=== PATIENT | male | born 1980 | race Caucasian/White ===

== ENCOUNTER 2017-03-23 15:09 | Emergency (ER) | payer MEDICARE, MEDICAID ==
[~2017-03-23] VITALS: Ht 152.4 cm; Wt 113.4 kg
--- NOTE | 2017-03-23 15:40 | ED Abdominal Pain ---
General Stated Complaint: ABD PAIN Source of Information: Caregiver (FROM [employer] [facility]), Other (PARENTS / MOM IS VERY LIMITED HISTORIAN) Exam Limitations: Other (PT WITH DOWN'S AND SEVERE MR AND MOSTLY UNINTELLIGIBLE SPEECH) History of Present Illness Time Seen By Provider: 15:18 Initial Comments PT ARRIVES VIA EMS FROM [facility] STAFF THINK PT IS HAVING ABDOMINAL PAIN, BUT CAN'T BE FOR CERTAIN PT HAS BEEN IN BED ALL DAY PT HAS NOT VOIDED SINCE YESTERDAY HAD SMALL, HARD/EDUARDO FOR BM YESTERDAY AROUND 1500 PT IS ABLE TO VERBALIZE HE HAS TO GO TO BATHROOM BUT CANNOT NO VOMITING, BUT ONLY INTAKE TODAY HAS BEEN 1 NUTRI-GRAIN BAR NO KNOWN FEVER NO HISTORY OF SIMILAR PCP: DR. HARRIS Allergies and Home Medications Allergies Coded Allergies: No Known Drug Allergies (Unverified , 03/23/17) Home Medications Nitrofurantoin Monohyd/M-Cryst 100 Mg Capsule, 100 MG PO BID, #20 Prescribed by: AUDI CANCHOLA on 03/23/17 1728 Tamsulosin HCl 0.4 Mg Cap, 0.4 MG PO DAILY, #10 Prescribed by: AUDI CANCHOLA on 03/23/17 1728 Review of Systems Constitutional: see HPI, malaise, other (VERY LIMITED INFORMATION) Respiratory: Denies Cough, Denies Shortness of Air Gastrointestinal: See HPI Genitourinary: See HPI Past Gebmrcq-Ssjpyz-Tzpiqi Hx Patient Social History Alcohol Use: Denies Use Recreational Drug Use: No Smoking Status: Never a Smoker Surgeries History of Surgeries: Yes (VENTRAL HERNIA REPAIR X 2; VSD REPAIR ) Surgeries: Abdominal, Cardiac Respiratory History of Respiratory Disorde: No Cardiovascular History of Cardiac Disorders: Yes (S/P VSD REPAIR ) Cardiac Disorders: Congenital Heart Disease Neurological History of Neurological Disord: Yes (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 Genitourinary History of Genitourinary Disor: No Gastrointestinal History of Gastrointestinal Di: Yes Gastrointestinal Disorders: Abdominal Hernia Endocrine History of Endocrine Disorders: No Psychosocial History of Psychiatric Problem: Yes (MR) Physical Exam Vital Signs VS - Last 72 Hours, by Label 03/23/17 15:15 Temp 98.1 Pulse 109 Resp 20 B/P (MAP) 116/98 Pulse Ox 98 O2 Delivery Room Air Capillary Refill : General Appearance: no apparent distress, other (DOWN'S FEATURES) Respiratory: normal breath sounds, no respiratory distress, no accessory muscle use Cardiovascular: regular rate, rhythm Gastrointestinal: abnormal bowel sounds (DECREASED ), distended, tenderness ( LOWER ABDOMINAL TENDERNESS), other (BLADDER DISTENDED AND IS AT UMBILICUS) Neurologic/Psychiatric: no motor/sensory deficits, alert, normal mood/affect ( NORMAL MENTATION FOR PT), other (SPEECH MOSTLY UNINTELLIGIBLE, BUT IS VERY VERBAL) Skin: normal color, warm/dry Progress/Results/Core Measures Results/Orders Lab Results Laboratory Tests Test 03/23/17 15:30 03/23/17 15:55 Range/Units White Blood Count 8.1 4.3-11.0 10^3/uL Red Blood Count 5.50 4.35-5.85 10^6/uL Hemoglobin 17.7 13.3-17.7 G/DL Hematocrit 53 40-54 % Mean Corpuscular Volume 96 80-99 FL Mean Corpuscular Hemoglobin 32 25-34 PG Mean Corpuscular Hemoglobin Concent 34 32-36 G/DL Red Cell Distribution Width 14.2 10.0-14.5 % Platelet Count 215 130-400 10^3/uL Mean Platelet Volume 9.1 7.4-10.4 FL Neutrophils (%) (Auto) 67 42-75 % Lymphocytes (%) (Auto) 20 12-44 % Monocytes (%) (Auto) 12 0-12 % Eosinophils (%) (Auto) 1 0-10 % Basophils (%) (Auto) 1 0-10 % Neutrophils # (Auto) 5.4 1.8-7.8 X 10^3 Lymphocytes # (Auto) 1.6 1.0-4.0 X 10^3 Monocytes # (Auto) 1.0 0.0-1.0 X 10^3 Eosinophils # (Auto) 0.1 0.0-0.3 10^3/uL Basophils # (Auto) 0.1 0.0-0.1 10^3/uL Sodium Level 141 135-145 MMOL/L Potassium Level 4.0 3.6-5.0 MMOL/L Chloride Level 104 98-107 MMOL/L Carbon Dioxide Level 26 21-32 MMOL/L Anion Gap 11 5-14 MMOL/L Blood Urea Nitrogen 11 7-18 MG/DL Creatinine 1.12 0.60-1.30 MG/DL Estimat Glomerular Filtration Rate > 60 BUN/Creatinine Ratio 10 Glucose Level 100 70-105 MG/DL Calcium Level 9.8 8.5-10.1 MG/DL Total Bilirubin 1.1 H 0.1-1.0 MG/DL Aspartate Amino Transf (AST/SGOT) 20 5-34 U/L Alanine Aminotransferase (ALT/SGPT) 32 0-55 U/L Alkaline Phosphatase 69 40-136 U/L Total Protein 7.8 6.4-8.2 GM/DL Albumin 3.9 3.2-4.5 GM/DL Amylase Level 25 25-125 U/L Lipase 10 8-78 U/L Urine Color YELLOW Urine Clarity CLEAR Urine pH 6 5-9 Urine Specific [place] 1.015 L 1.016-1.022 Urine Protein NEGATIVE NEGATIVE Urine Glucose (UA) NEGATIVE NEGATIVE Urine Ketones NEGATIVE NEGATIVE Urine Nitrite NEGATIVE NEGATIVE Urine Bilirubin NEGATIVE NEGATIVE Urine Urobilinogen NORMAL NORMAL MG/DL Urine Leukocyte Esterase NEGATIVE NEGATIVE Urine RBC (Auto) NEGATIVE NEGATIVE Urine RBC NONE /HPF Urine WBC NONE /HPF Urine Squamous Epithelial Cells RARE /HPF Urine Crystals NONE /LPF Urine Bacteria NEGATIVE /HPF Urine Casts NONE /LPF Urine Mucus NEGATIVE /LPF Urine Culture Indicated NO My Orders Orders - AUDI CANCHOLA DO Saline Lock/Iv-Start (03/23/17 15:18) Amylase (03/23/17 15:18) Cbc With Automated Diff (03/23/17 15:18) Comprehensive Metabolic Panel (03/23/17 15:18) Lipase (03/23/17 15:18) Ua Culture If Indicated (03/23/17 15:18) Catheter(Urinary) Insert & Ass 03,15 (03/23/17 15:30) Bladder Scan (03/23/17 15:30) Ct Abdomen/Pelvis W (03/23/17 16:15) Iohexol Injection (Omnipaque 350 Mg/Ml 1 (03/23/17 16:30) Ns (Ivpb) (Sodium Chloride 0.9% Ivpb Bag (03/23/17 16:30) Pharmacy Communication (Pharmacy Communi (03/23/17 16:18) Rx-Nitrofurantoin [place] (Rx-Macrobid) (03/23/17 17:29) Alfuzosin Tablet (Uroxatral Tablet) (03/23/17 17:30) Medications Given in ED Current Medications Medications Dose Ordered Sig/Vinod Route Start Time Stop Time Status Last Admin Dose Admin Iohexol 100 ml ONCE ONCE IV 03/23/17 16:30 03/23/17 16:31 DC 03/23/17 16:41 100 ML Sodium Chloride 100 ml ONCE ONCE IV 03/23/17 16:30 03/23/17 16:31 DC 03/23/17 16:41 80 ML Vital Signs/I&O Vital Sign - Last 12Hours 03/23/17 15:15 Temp 98.1 Pulse 109 Resp 20 B/P (MAP) 116/98 Pulse Ox 98 O2 Delivery Room Air Intake and Output 03/24/17 00:00 Output Total 857 ml Balance -857 ml Progress Note : Progress Note BLADDER SCAN--> 850 ML URINE IMMEDIATE RELIEF OF DISCOMFORT WITH GOULD CATHETER PLACEMENT AND DRAINAGE OF 1200 ML URINE Departure Impression Impression: Primary Impression: Acute urinary retention Disposition: HOME, SELF-CARE Condition: Improved Departure-Patient Inst. Referrals: ELISA HARRIS DO (PCP/Family) Primary Care Physician CHARO DOBSON MD Patient Instructions: How to Care for Your Gould Catheter, Male, How to Prevent Catheter Associated Urinary Tract Infections, Urinary Retention (DC) Add. Discharge Instructions: CONTINUE YOUR REGULAR MEDICATIONS PRESCRIBED LEAVE GOULD CATHETER IN PLACE, EMPTY BAG NEEDED FOLLOW UP WITH DR. DOBSON IN 2-3 DAYS FOR FURTHER CARE Scripts Tamsulosin HCl (Flomax) 0.4 Mg Cap 0.4 MG PO DAILY, #10 CAP Prov: AUDI CANCHOLA DO 03/23/17 Nitrofurantoin Monohyd/M-Cryst (Macrobid 100 mg Capsule) 100 Mg Capsule 100 MG PO BID, #20 CAP Prov: AUDI CANCHOLA DO 03/23/17 AUDI CANCHOLA DO Mar 23, 2017 15:39
[2017-03-23 15:42] LABS: BASOPHILS # (AUTO) 0.1 10^3/uL (0.0-0.1); BASOPHILS % (AUTO) 1 % (0-10); EOSINOPHILS # (AUTO) 0.1 10^3/uL (0.0-0.3); EOSINOPHILS % (AUTO) 1 % (0-10); LYMPHOCYTES # (AUTO) 1.6 X 10^3 (1.0-4.0); LYMPHOCYTES % (AUTO) 20 % (12-44); MEAN CORPUSCULAR HEMOGLOBIN 32 PG (25-34); MEAN CORPUSCULAR HGB CONC 34 G/DL (32-36); MEAN CORPUSCULAR VOLUME 96 FL (80-99); MEAN PLATELET VOLUME 9.1 FL (7.4-10.4); MONOCYTES % (AUTO) 12 % (0-12); NEUTROPHILS # (AUTO) 5.4 X 10^3 (1.8-7.8); NEUTROPHILS % (AUTO) 67 % (42-75); PLATELET COUNT 215 10^3/uL (130-400); RED CELL DISTRIBUTION WIDTH 14.2 % (10.0-14.5); WHITE BLOOD COUNT 8.1 10^3/uL (4.3-11.0)
[2017-03-23 16:07] LABS: ALANINE AMINOTRANSFERASE 32 U/L (0-55); ALBUMIN 3.9 GM/DL (3.2-4.5); AMYLASE 25 U/L (25-125); ANION GAP 11 MMOL/L (5-14); ASPARTATE AMINO TRANSFERASE 20 U/L (5-34); BILIRUBIN,TOTAL 1.1 MG/DL (0.1-1.0); BLOOD UREA NITROGEN 11 MG/DL (7-18); BUN/CREATININE RATIO 10; CALCIUM 9.8 MG/DL (8.5-10.1); CARBON DIOXIDE 26 MMOL/L (21-32); CHLORIDE 104 MMOL/L (98-107); CREATININE SERUM 1.12 MG/DL (0.60-1.30); GFR ESTIMATED > 60; GLUCOSE 100 MG/DL (70-105); LIPASE 10 U/L (8-78); SODIUM 141 MMOL/L (135-145); TOTAL PROTEIN 7.8 GM/DL (6.4-8.2)
[2017-03-23 16:20] LABS: BILIRUBIN,URINE NEGATIVE (NEGATIVE); KETONES,URINE NEGATIVE (NEGATIVE); LEUKOCYTE ESTERASE ,URINE NEGATIVE (NEGATIVE); NITRITE,URINE NEGATIVE (NEGATIVE); PH,URINE 6 (5-9); PROTEIN,URINE NEGATIVE (NEGATIVE); UROBILINOGEN,URINE NORMAL (NORMAL)
[2017-03-23] MEDS ORDERED: NS 100 ML (IVPB) BAG IV ONE (16:30)
[2017-03-23] MEDS ORDERED: IOHEXOL 350 MG/ML 100 ML (OMNIPAQUE 350) VIAL IV ONE (16:30)
[2017-03-23 16:31] LABS: SQUAMOUS EPITHELIAL CELL,UR RARE /HPF
--- NOTE | 2017-03-23 16:59 | Diagnostic Imaging Report ---
PROCEDURE: CT abdomen and pelvis with contrast. TECHNIQUE: Multiple contiguous axial images were obtained through the abdomen and pelvis after administration of intravenous contrast. INDICATION: Abdominal pain with constipation. FINDINGS: The lung bases are clear. Liver appears normal. Gallbladder and bile ducts are normal. The pancreas and spleen appear normal. The adrenal glands are normal. Kidneys are normal. There is normal enhancement of the abdominal organs and vessels following IV contrast. Stomach is nondistended. There is gas noted throughout the small bowel and colon with no evidence of obstructive process. There is not a significant stool burden present. There is no impacted stool present. No evidence of diverticulitis. No changes to indicate colitis. No intra-abdominal adenopathy is demonstrated. There is noted previous ventral hernia repair with recurrent hernia noted along the inferior margin of the mesh right of midline. This contains intra-abdominal fat. There is also a small umbilical hernia which contains abdominal fat. Zapien catheter is present within the bladder which is not distended. IMPRESSION: 1. There is no evidence of constipation. There is gas-filled small bowel and colon with no evidence of obstruction which would suggest mild generalized adynamic ileus. Enteritis would be in the differential. 2. Recurrent ventral hernia is present just below previous mesh repair. There is also noted an umbilical hernia which contains small amount of abdominal fat. 3. Zapien catheter in good position with decompression of the bladder. Dictated by: Dictated on workstation # [id number]
[2017-03-23] MEDS ORDERED: TAMS0.4C98 PO (17:28)
[2017-03-23] MEDS ORDERED: NITR-65 PO (17:28)
[2017-03-23] MEDS ORDERED: RX-NITROFURANTOIN 100 MG (MACROBID) CAP PPK#2 PO STA (17:29)
[2017-03-23] MEDS ORDERED: ALFUZOSIN HCL 10 MG TAB (UROXATRAL) PO SCH (17:30)
[2017-03-23 18:11] VITALS: BP 116/98
== END 2017-03-23 18:11 | disposition home or self-care (01) ==
LOC: EDUNIT# 15:09 → ER 15:14
DX: R33.9 Retention of urine, unspecified (principal); Q24.9 Congenital malformation of heart, unspecified; Q90.9 Down syndrome, unspecified; Z87.19 Personal history of other diseases of the digestive system
CPT/HCPCS: 36415; 51702; 74177; 80053; 81000; 82150; 83690; 85025

== ENCOUNTER → 2020-08-01 | Outpatient (CLI) | payer MEDICARE, MEDICAID ==
[~2020-08-01] MED LIST: NITR-65 PO; TMSL.4C PO
[2020-08-01 13:01] LABS: BASOPHILS # (AUTO) 0.1 10^3/uL (0.0-0.1); BASOPHILS % (AUTO) 1 % (0-10); EOSINOPHILS # (AUTO) 0.1 10^3/uL (0.0-0.3); EOSINOPHILS % (AUTO) 2 % (0-10); HEMATOCRIT 52 % (40-54); HEMOGLOBIN 17.3 g/dL (13.3-17.7); LYMPHOCYTES # (AUTO) 2.1 10^3/uL (1.0-4.0); LYMPHOCYTES % (AUTO) 36 % (12-44); MEAN CORPUSCULAR HEMOGLOBIN 33 pg (25-34); MEAN CORPUSCULAR HGB CONC 33 g/dL (32-36); MEAN CORPUSCULAR VOLUME 98 fL (80-99); MEAN PLATELET VOLUME 8.9 fL (9.0-12.2); MONOCYTES # (AUTO) 0.6 10^3/uL (0.0-1.0); MONOCYTES % (AUTO) 10 % (0-12); NEUTROPHILS % (AUTO) 51 % (42-75); PLATELET COUNT 203 10^3/uL (130-400); WHITE BLOOD COUNT 5.9 10^3/uL (4.3-11.0)
[2020-08-01 13:21] LABS: ALANINE AMINOTRANSFERASE 42 U/L (0-55); ALBUMIN 3.9 GM/DL (3.2-4.5); ALKALINE PHOSPHATASE 71 U/L (40-136); BILIRUBIN,TOTAL 0.4 MG/DL (0.1-1.0); BUN/CREATININE RATIO 13; CALCIUM 9.2 MG/DL (8.5-10.1); CARBON DIOXIDE 24 MMOL/L (21-32); CHLORIDE 105 MMOL/L (98-107); GFR ESTIMATED > 60; GLUCOSE 87 MG/DL (70-105); POTASSIUM 4.3 MMOL/L (3.6-5.0); SODIUM 141 MMOL/L (135-145); TOTAL PROTEIN 7.3 GM/DL (6.4-8.2)
== END ==
LOC: CARD 12:12
PROVIDERS: ATTEND Dentist
DX: Z01.818 Encounter for other preprocedural examination (principal)
CPT/HCPCS: 36415; 80053; 85025; 93005

== ENCOUNTER → 2020-10-05 | Outpatient (CLI) | payer MEDICARE, MEDICAID | LOC: CARD 13:20 | PROVIDERS: ATTEND Internal Medicine Cardiovascular Disease | DX: R94.31 Abnormal electrocardiogram [ECG] [EKG] (principal) | CPT/HCPCS: 93306 ==